=== PATIENT | female | born 1945 | race African-American/Black ===

== ENCOUNTER 2016-05-25 15:18 | Emergency (ER) | payer OTHER ==
[2016-05-25 11:41] LABS: BASOPHILS 0.9 %; BASOPHILS ABSOLUTE 0.06 10/3/uL (0.0-0.16); EOSINOPHILS ABSOLUTE 0.28 10/3/uL (0.0-0.53); ER CBC TAT 0 Hrs 03 Mins; HEMOGLOBIN 9.6 g/dL (12.0-16.0); IMMATURE GRANULOCYTES 0.1 %; IMMATURE GRANULOCYTES ABSOLUTE 0.01 10/3/uL (0.0-0.11); LYMPHOCYTES 20.5 %; LYMPHOCYTES ABSOLUTE 1.43 10/3/uL (0.67-4.30); MEAN CORPUS HGB CONC 30.2 g/dL (32.0-36.0); MEAN CORPUSCULAR HEMOGLOB 20.8 pg (26.0-34.0); MONOCYTES 11.3 %; MONOCYTES ABSOLUTE 0.79 10/3/uL (0.21-1.20); NEUTROPHILS 63.2 %; PLATELET COUNT 258 10/3/uL (150-400)
[2016-05-25 11:43] LABS: HEMATOCRIT 31.8 % (36.0-48.0); MANUAL DIFF NO %; MEAN CORPUSCULAR VOLUME 68.8 fL (80-100); RED CELL COUNT 4.62 10/6/uL (4.0-5.6)
[2016-05-25 11:58] LABS: A/G RATIO 0.9 (0.7-1.9); ALBUMIN 3.8 G/DL (3.5-5.0); BUN (BLOOD UREA NITROGEN) 10 MG/DL (6-23); CALCIUM, SERUM 9.5 MG/DL (8.5-10.4); CHLORIDE, SERUM 106 MMOL/L (96-112); CO2 (CARBON DIOXIDE) 27 MMOL/L (24-34); CREATININE 0.57 MG/DL (0.55-1.02); GFR AFRICAN AMERICAN 110 ML/MIN (>=60); GFR NON AFRICAN AMERICAN 95 ML/MIN (>=60); GLOBULIN 4.1 G/DL (2.5-4.1); POTASSIUM, SERUM 3.7 MMOL/L (3.5-5.3); SGOT(AST) 11 U/L (5-40); SGPT(ALT) 14 U/L (5-65); SODIUM, SERUM 142 MMOL/L (135-148); TOTAL PROTEIN 7.9 G/DL (6.0-8.5)
[2016-05-25 12:02] LABS: ALKALINE PHOSPHATASE 102 U/L (45-117); GLUCOSE, SERUM 96 MG/DL (60-99); TOTAL BILIRUBIN 0.7 MG/DL (0-1.2)
[2016-05-25 12:03] LABS: ANISOCYTOSIS 1+ (5-10/OIF) (0-5/OIF); PLATELET ESTIMATE ADQ (ADEQUATE)
[2016-05-25 12:04] LABS: GIANT PLATELET RARE; HYPOCHROMIA 3+ (>30/OIF) (0-2/OIF); TOXIC GRANULATION SLT
[2016-05-25 12:06] LABS: ELLIPTOCYTES 1+ (3-10/OIF) (0-2/OIF)
[2016-05-25 12:08] LABS: SCHISTOCYTES OCC (0-2/OIF)
[2016-05-25 12:59] LABS: INTERNATIONAL NORMAL RATI 1.2 UNITS (-); PROTIME (NOT ORD) 15.4 SEC (12.0-14.5)
[2016-05-25 14:46] LABS: ASCORBIC ACID (UR NOT ORDER) NEG (NEG); BILIRUBIN, URINE NEGATIVE (NEG); ER URINALYSIS TAT 0 Hrs 00 Mins; KETONE, URINE NEGATIVE (NEG); LEUKOCYTE ESTERASE(NOT OR NEG (NEG); NITRITE (URINE) NEG (NEG); WBC (NOT ORDERED) (RFLEX) < 1 (0-5)
[~2016-05-25 15:18] MED LIST: APRES50 PO; ASAB PO; BUM2 PO; CAPOTEN100 MG PO; CAT1 PO; COREG25 PO; EZFE 200200 MG PO; GLUCPH PO; KLOR-CON M2020 MEQ PO; NORV5 PO; PERCOCET1 TA4 PO; PLAQ200B PO; PRAVACHOL40 MG PO; PROTONIX PO; Z300 PO
[2016-10-15] MEDS ORDERED: NORCO1 TA2 PO (11:18)
[2016-10-15] MEDS ORDERED: PROAIR HFA INH (11:22)
[2016-10-27] MEDS ORDERED: PCET PO (15:35)
[2016-10-27] MEDS ORDERED: C5 (15:35)
== END 2016-05-25 16:20 | disposition home or self-care (01) ==
LOC: ER 15:18
PROVIDERS: Emergency Medicine
DX: R60.0 Localized edema (principal); J44.9 Chronic obstructive pulmonary disease, unspecified; E11.9 Type 2 diabetes mellitus without complications; Z88.8 Allergy status to other drugs, medicaments and biological substances; Z79.82 Long term (current) use of aspirin
CPT/HCPCS: 71010; 80053; 81001; 85025; 85610; 85730; 93005; 93970; 99284